=== PATIENT | female | born 1960 | race Caucasian/White ===

== ENCOUNTER 2022-05-08 18:40 | Emergency (ER) | payer OTHER ==
[2022-05-08 18:54] VITALS: BP 160/77; PULSE 68; RESP 18; TEMP 99; BMI 42.3
[2022-05-08] MEDS ORDERED: ACETAMINOPHEN 500 MG TABLET (FP) ONE (19:59)
[2022-05-08] MEDS ORDERED: ACETAMINOPHEN 500 MG TABLET (FP) PO ONE (20:00)
== END 2022-05-08 20:45 | disposition home or self-care (01) ==
LOC: FER 18:40
DX: S52.501A Unspecified fracture of the lower end of right radius, initial encounter for closed fracture (principal); S00.83XA Contusion of other part of head, initial encounter
CPT/HCPCS: 70450-TC; 73110-TC-RT-FY; 73130-TC-RT-FY; 99284-25